=== PATIENT | male | born 1985 | race African-American/Black ===

== ENCOUNTER 2020-11-29 03:56 | Inpatient (IN) | payer BC ==
[2020-11-29] VITALS (7 sets, daily range): BP systolic 130–149; BP diastolic 72–111; PULSE 94–114; TEMP 98–98.9
[~2020-11-29] VITALS: Ht 182.9 cm; Wt 95.5 kg
[2020-11-29 05:05] LABS: BASO % 0.5 % (0.0-2.0); EOS % 0.3 % (0-4.0); GRAN # 4.7 (1.4-6.5); GRAN % 70.9 % (42.2-75.2); HEMATOCRIT 44.9 % (42.0-52.0); HEMOGLOBIN 15.6 g/dl (13.5-18.0); LYMPH % 14.7 % (20.0-51.0); MEAN CELL VOLUME 98 fl (80.0-100.0); MEAN CORPUSCULAR HEMOGLOBIN 34 pg (27.0-31.0); MEAN CORPUSCULAR HGB CONC 35 g/dl (33.0-37.0); MEAN PLATELET VOLUME 10.4 fl (7.4-10.4); MONO # 0.9 (0.1-0.6); MONO % 13.1 % (1.7-9.3); PLATELET COUNT 136 K/mm3 (130-400); RED BLOOD COUNT 4.59 M/mm3 (4.20-5.60); REDCELL DISTRIBUTION WIDTH-CV 13.1 % (11.5-14.5)
[2020-11-29 05:06] LABS: ALBUMIN 4.9 gm/dL (3.5-5.0); BILIRUBIN,TOTAL 2.4 mg/dL (0.0-1.0); CALCIUM 9.5 mg/dL (8.4-10.2); CREATININE, serum 0.94 (0.66-1.25); MAGNESIUM 1.6 mg/dL (1.6-2.3); POTASSIUM 3.6 mmol/L (3.4-5.0); TOTAL PROTEIN 8.9 gm/dL (6.4-8.2)
[2020-11-29 05:36] LABS: THYROID STIMULATING HORMONE 6.27 uIU/mL (0.465-4.680)
[2020-11-29 05:38] LABS: COLLECTION METHOD CLEAN CATCH
[2020-11-29 05:48] LABS: PH 7 (5-8); SQUAMOUS EPITHELIAL None Seen /hpf; URINE APPEARANCE Clear; URINE BACTERIA None Seen /hpf; URINE BILIRUBIN Negative (NEGATIVE); URINE BLOOD Negative (NEGATIVE); URINE COLOR Yellow; URINE GLUCOSE Negative (NEGATIVE); URINE KETONE Trace (NEGATIVE); URINE LEUKOCYTE ESTERASE Negative (NEGATIVE); URINE NITRATE Negative (NEGATIVE); URINE PROTEIN(semi-quant) 1+ (NEGATIVE); URINE RBC 0-2 /hpf; URINE UROBILINOGEN >=4.0 mg/dL (NEGATIVE)
[2020-11-29 17:53] LABS: TRICYCLIC ANTIDEPRESS URINE NEGATIVE
[2020-11-30] VITALS (13 sets, daily range): BP systolic 122–151; BP diastolic 83–100; PULSE 83–130; TEMP 97.5–98.9
[2020-11-30 07:11] LABS: HEMATOCRIT 40.9 % (42.0-52.0); HEMOGLOBIN 13.9 g/dl (13.5-18.0); MEAN CELL VOLUME 100 fl (80.0-100.0); MEAN CORPUSCULAR HEMOGLOBIN 34 pg (27.0-31.0); MEAN CORPUSCULAR HGB CONC 34 g/dl (33.0-37.0); MEAN PLATELET VOLUME 11.2 fl (7.4-10.4); PLATELET COUNT 124 K/mm3 (130-400); RED BLOOD COUNT 4.09 M/mm3 (4.20-5.60); REDCELL DISTRIBUTION WIDTH-CV 13.5 % (11.5-14.5)
[2020-11-30 07:27] LABS: ALBUMIN 4.3 gm/dL (3.5-5.0); BILIRUBIN,TOTAL 1.8 mg/dL (0.0-1.0); CALCIUM 8.8 mg/dL (8.4-10.2); CREATININE, serum 1.08 (0.66-1.25); MAGNESIUM 2.1 mg/dL (1.6-2.3); POTASSIUM 3.8 mmol/L (3.4-5.0); TOTAL PROTEIN 7.8 gm/dL (6.4-8.2)
[2020-12-01 01:28] VITALS: BP 162/114; PULSE 91; TEMP 98.8
[2020-12-01 03:34] VITALS: BP 142/105; PULSE 125; TEMP 98.9
[2020-12-01 05:48] VITALS: BP 134/90; PULSE 95; TEMP 98.7
[2020-12-01 07:20] LABS: BASO # 0.1 (0.0-0.2); BASO % 0.9 % (0.0-2.0); EOS # 0.1 (0.0-0.7); EOS % 2.1 % (0-4.0); GRAN # 3.7 (1.4-6.5); GRAN % 63.4 % (42.2-75.2); HEMATOCRIT 37.8 % (42.0-52.0); HEMOGLOBIN 12.5 g/dl (13.5-18.0); LYMPH % 17.9 % (20.0-51.0); MEAN CELL VOLUME 102 fl (80.0-100.0); MEAN CORPUSCULAR HEMOGLOBIN 34 pg (27.0-31.0); MEAN CORPUSCULAR HGB CONC 33 g/dl (33.0-37.0); MEAN PLATELET VOLUME 10.6 fl (7.4-10.4); MONO # 0.9 (0.1-0.6); PLATELET COUNT 143 K/mm3 (130-400); RED BLOOD COUNT 3.69 M/mm3 (4.20-5.60); REDCELL DISTRIBUTION WIDTH-CV 13.5 % (11.5-14.5)
[2020-12-01 07:32] LABS: ALBUMIN 3.8 gm/dL (3.5-5.0); BILIRUBIN,TOTAL 1.1 mg/dL (0.0-1.0); CALCIUM 8.6 mg/dL (8.4-10.2); CREATININE, serum 0.85 (0.66-1.25); POTASSIUM 3.7 mmol/L (3.4-5.0); TOTAL PROTEIN 6.9 gm/dL (6.4-8.2)
[2020-12-01 07:38] VITALS: BP 129/92; PULSE 107; TEMP 98.2
[2020-12-01 10:00] VITALS: BP 122/87; PULSE 95; TEMP 98.4
[2020-12-01] MEDS ORDERED: DUO-KAPS1 CAP PO (10:14)
[2020-12-01] MEDS ORDERED: FOLIC ACID 11 MG/TA1 PO (10:15)
[2020-12-01] MEDS ORDERED: THIAMINE 1100 MG/TAB PO (10:15)
== END 2020-12-01 12:20 | disposition home or self-care (01) | DRG 897 ==
LOC: COL.ER 03:56 → SURG 05:55
PROVIDERS: Emergency Medicine; Physician Assistant; ADMIT Student in an Organized Health Care Education/Training Program
DX: F10.139 Alcohol abuse with withdrawal, unspecified (principal); E87.2 Acidosis; Y90.0 Blood alcohol level of less than 20 mg/100 ml; F17.200 Nicotine dependence, unspecified, uncomplicated; I10 Essential (primary) hypertension; D69.6 Thrombocytopenia, unspecified; R10.9 Unspecified abdominal pain; Z20.828 Contact with and (suspected) exposure to other viral communicable diseases
CPT/HCPCS: 99222-AI; 99232-AI; 99239; J0360; J1630; J1650; J1885; J2060; J3475; J3480; J7030

== ENCOUNTER 2021-03-03 10:13 | Inpatient (IN) | payer BC ==
[2021-03-03] VITALS (269 sets, daily range): BP systolic 93–156; BP diastolic 55–115; PULSE 121–153; TEMP 97.1–101; O2SAT 69–100
[~2021-03-03] VITALS: Ht 182.9 cm; Wt 96.7 kg
[~2021-03-03 10:13] MED LIST: DUO-KAPS1 CAP PO; FOLIC ACID 11 MG/TA1 PO; THIAMINE 1100 MG/TAB PO
[2021-03-03 11:27] LABS: BASO % 0.3 % (0.0-2.0); EOS % 0.3 % (0-4.0); GRAN # 4.8 (1.4-6.5); GRAN % 78.7 % (42.2-75.2); HEMATOCRIT 39.1 % (42.0-52.0); HEMOGLOBIN 14.2 g/dl (13.5-18.0); LYMPH # 0.8 (1.2-3.4); LYMPH % 12.4 % (20.0-51.0); MEAN CELL VOLUME 86 fl (80.0-100.0); MEAN CORPUSCULAR HEMOGLOBIN 31 pg (27.0-31.0); MEAN CORPUSCULAR HGB CONC 36 g/dl (33.0-37.0); MEAN PLATELET VOLUME 8.5 fl (7.4-10.4); MONO # 0.5 (0.1-0.6); MONO % 8.1 % (1.7-9.3); PLATELET COUNT 176 K/mm3 (130-400); RED BLOOD COUNT 4.54 M/mm3 (4.20-5.60); REDCELL DISTRIBUTION WIDTH-CV 11.7 % (11.5-14.5)
[2021-03-03 11:33] LABS: COLLECTION METHOD CLEAN CATCH
[2021-03-03 11:39] LABS: PH 7 (5-8); SQUAMOUS EPITHELIAL None Seen /hpf; URINE APPEARANCE Clear; URINE BACTERIA None Seen /hpf; URINE BILIRUBIN Negative (NEGATIVE); URINE BLOOD Negative (NEGATIVE); URINE COLOR Straw; URINE GLUCOSE Negative (NEGATIVE); URINE KETONE Negative (NEGATIVE); URINE LEUKOCYTE ESTERASE Negative (NEGATIVE); URINE NITRATE Negative (NEGATIVE); URINE PROTEIN(semi-quant) Negative (NEGATIVE); URINE RBC 0-2 /hpf; URINE UROBILINOGEN Negative (NEGATIVE)
[2021-03-03 11:47] LABS: ALBUMIN 3.6 gm/dL (3.5-5.0); BILIRUBIN,TOTAL 3.3 mg/dL (0.0-1.0); CALCIUM 8.1 mg/dL (8.4-10.2); CREATININE, serum 0.65 (0.66-1.25); POTASSIUM 3.2 mmol/L (3.4-5.0); TOTAL PROTEIN 7.5 gm/dL (6.4-8.2)
[2021-03-03 15:20] LABS: INR 1.2 (0.8-3.0); PROTHROMBIN TIME 13.1 SECONDS (9.7-12.8)
[2021-03-03 15:23] LABS: PARTIAL THROMBOPLASTIN TIME 30.6 SECONDS (26.0-37.0)
[2021-03-03 15:26] LABS: CALCIUM 8.3 mg/dL (8.4-10.2); CREATININE, serum 0.71 (0.66-1.25); POTASSIUM 3.5 mmol/L (3.4-5.0)
[2021-03-03 20:48] LABS: TRICYCLIC ANTIDEPRESS URINE NEGATIVE
--- NOTE | 2021-03-03 21:39 | NUR ---
CONFUSED, ANXIOUS, PRECEDEX IV HAS BEGUN, ATIVAN Q 2HR, HEART RATE REMAINS ELEVATED WITH HYPERTENSION
[2021-03-03 21:56] LABS: CALCIUM 8.1 mg/dL (8.4-10.2); CREATININE, serum 0.77 (0.66-1.25); POTASSIUM 3.9 mmol/L (3.4-5.0)
--- NOTE | 2021-03-03 22:30 | NUR ---
PATIENT BECOMES MORE AGITATED AND WANTS TO LEAVE ROOM ATTEMPS ROSANNE TO KEEP PATIENT IN ROOM, 2240 ENTIRE STAFF AND HOSPITALIST PRESENT, PLACING PATIENT BACK IN BED FULL RESTRAINTS UTILISED MEDS ADMINISTERED 2 NEW IV STARTS 20 G RIGHT AND LEFT AC. 2310 ARRIVAL OF ANESTHIA, 2312 MEDS ADMINSTERED PER ANESTHIA IN RAC, 2313 PATIENT INTUBATED 8.0 TUBE, 23 AT LIPS, CO2 CHANGE FROM PURPLE TO YELLOW, 2318 OG PLACED 68 AT LIPS, URINE GUALLPA PLACED WITH 350 CC RESIDUAL SECURED TO LEFT LEG, 2327 PROPFOL/ FENTANYL IV DRIPS BEGIN PER ORDER, 2330 PRTABLE CHEST EXRAY OBTAINED
--- NOTE | 2021-03-03 22:40 | NUR ---
2234 Patient physically aggressive with staff. RAFFAELE Eller shouting for help. Patient hallucinating. Phyiscally pushing staff. Patient assisted back to bed by BELLO Cantu, RAFFAELE Eller, and Michelle KNIGHT. Verbal orders for 2mg IM ativan now. EUGENE Martinez administered to patient. Patient placed in 4 point restraints and IVs started by staff. Patient given another 2mg IV Ativan per verbal order from Michelle KNIGHT and Dr. Stevenson. 2254 Patient continued to pull against restraints after administration of ativan. Continues to be tachy 150-190. Dr. Stevenson suggested to Michelle KNIGHT leaving patient in 4 point restraints and giving IV ativan 4mg Q1H throughout night. Patient safety a concern. Staff voiced concern to Michelle KNIGHT and suggested intubation for safety reasons. Michelle KNIGHT agrees with suggestion and spoke with Dr. Stevenson. Orders to proceed with intubation given.
[2021-03-04] VITALS (860 sets, daily range): BP systolic 87–117; BP diastolic 58–79; PULSE 72–130; TEMP 99.6–102.9; O2SAT 80–100
--- NOTE | 2021-03-04 | NUR ---
2313- PT INTUBATED. 8.0 TUBE. COLOR CHANGE ON C02 DETECTOR, EQUAL BILATERAL BREATH SOUNDS. ETT 23 @ LIPS. SECURED WITH TUBE HOLER. 2330- PT PLACED ON MECHANICAL VENTILATOR WITH SETTINGS OF 450, 16, + 5 40%/
[2021-03-04 01:31] LABS: ARTERIAL BLD GAS O2 SATURATION 99.2 % (92-100); ARTERIAL BLD GAS TCO2 CT 24.3; ARTERIAL BLOOD GAS BASE EXCESS -1.5 (-2-2); ARTERIAL BLOOD GAS HCO3 23.1 meq/L (22-26); ARTERIAL BLOOD GAS PO2 160.2 mmHg (80-100); ARTERIAL BLOOD GAS pH 7.39 (7.35-7.45)
--- NOTE | 2021-03-04 02:50 | NUR ---
PATIENT SEDATED AND INTUBATED, REMOVAL OF 4 POINT RESTRAINTS 2 SOFT RESTRAINTS REPLACED ON WRIST FOR THE PRERCAUTION OF PULLING AT IVS, ECG INTUBATION EQUIPMENT
[2021-03-04 04:06] LABS: BASO % 0.3 % (0.0-2.0); GRAN # 4.1 (1.4-6.5); GRAN % 71.6 % (42.2-75.2); HEMATOCRIT 41.7 % (42.0-52.0); HEMOGLOBIN 14.5 g/dl (13.5-18.0); LYMPH % 17.3 % (20.0-51.0); MEAN CELL VOLUME 90 fl (80.0-100.0); MEAN CORPUSCULAR HEMOGLOBIN 31 pg (27.0-31.0); MEAN CORPUSCULAR HGB CONC 35 g/dl (33.0-37.0); MEAN PLATELET VOLUME 9.4 fl (7.4-10.4); MONO # 0.6 (0.1-0.6); MONO % 10.5 % (1.7-9.3); PLATELET COUNT 134 K/mm3 (130-400); RED BLOOD COUNT 4.65 M/mm3 (4.20-5.60); REDCELL DISTRIBUTION WIDTH-CV 12.2 % (11.5-14.5)
[2021-03-04 04:15] LABS: ALBUMIN 3.4 gm/dL (3.5-5.0); BILIRUBIN,TOTAL 1.6 mg/dL (0.0-1.0); CALCIUM 7.6 mg/dL (8.4-10.2); CREATININE, serum 0.79 (0.66-1.25); MAGNESIUM 2.1 mg/dL (1.6-2.3); POTASSIUM 3.8 mmol/L (3.4-5.0); TOTAL PROTEIN 7.3 gm/dL (6.4-8.2)
[2021-03-04 05:54] LABS: ARTERIAL BLD GAS O2 SATURATION 99.1 % (92-100); ARTERIAL BLD GAS TCO2 CT 23.8; ARTERIAL BLOOD GAS BASE EXCESS -3.2 (-2-2); ARTERIAL BLOOD GAS HCO3 22.5 meq/L (22-26); ARTERIAL BLOOD GAS PCO2 42.6 mmHg (35-45); ARTERIAL BLOOD GAS pH 7.34 (7.35-7.45)
[2021-03-04 05:55] LABS: ARTERIAL BLOOD GAS PO2 148.5 mmHg (80-100)
--- NOTE | 2021-03-04 06:06 | NUR ---
PT IS NOT ON WEAN TRIAL HAS NOT BEEN INTUBATED FOR MORE THAN 24 HOURS. ON DOCUMENTED SETTINGS AAYUSH WELL WITH NO DISTRESS NOTED
--- NOTE | 2021-03-04 06:23 | NUR ---
NO VACATION TONIGHT CAUSE JUS GOT PATIENT SEDATED A COUPLE OF HOURS AGO
--- NOTE | 2021-03-04 10:00 | NUR ---
Updated mother of patient status via telephone. All questions and concerns addressed at this time.
--- NOTE | 2021-03-04 10:37 | NUR ---
Angle Dozer Operator contacted patient's family to complete intake as patient is currently intubated and on isolation precautions due to COVID 19 infection. SW contacted patient's fiance, Neela (ph#[phone]) who advised she and patient live with their three year old son, Alexis here in [place]. Neela does not believe patient has a primary care physician at this time. Patient does not use any DME and is normally independent with ADLS. Neela does not believe patient has DPOA-HC and SW did not locate copy in EMR. Neela advised patient is not and has no children over 18. Neela reports patient's parents Cleveland (ph#[phone]) and Owen (cell#[phone], home#[phone]) live in [place]. Neela understands that SW has to contact patient's parents as they are legal next of kin, however this also upsets her as she is concerned patient's mother will make patient feel guilty about all that's happened. Neela advised she thought patient had quit drinking back in December and had even told patient when he proposed that she would not him unless he quit drinking. Neela believes patient went to a treatment program back in late 2017. JONAH then contacted patient's father, Cleveland who was aware patient was in the hospital. JONAH notified Cleveland that patient is intubated and that he and Owen would be patient's decision makers as legal next of kin. Cleveland verbalized understanding and asked SW to contact patient's mother, Owen as well. JONAH contacted Owen to notify her that patient was intubated and admitted to the ICU. Owen repeatedly asked SW if patient was going to and was very worried about patient. JONAH advised Owen that patient's RN would call as soon as she can to give a medical update. JONAH collaborated with Miriam CASTORENA about patient's legal next of kin and advised that any decisions would need to be made by patient's parents. JONAH provided RN with parent's contact information and also updated patient's physical chart to include contact information for patient's parents, which identify them as legal next of kin. Miriam CASTORENA contacted patient's mother, Owen to give medical update. Discharge Plan: Unknown at this time, patient remains intubated.
--- NOTE | 2021-03-04 10:44 | NUR ---
Initial visit; attempt; Patient sleeping, Foster Winder left card offering God's blessings and information regarding the availability of spiritual care at our hospital.
--- NOTE | 2021-03-04 11:00 | NUR ---
Municipal Engineer received a phone call from patient's mother, Owen who inquired about how they could legally place patient in alcohol treatment. SW advised Owen that patient would have to be agreeable to go to treatment unless there was a court order. Owen verbalized understanding and will try to talk with patient about going to inpatient treatment. Owen reports that they would be able to support patient financially while he is in inpatient treatment. Owen advised this is not the first time patient has been hospitalized for detox. JONAH will continue to follow.
--- NOTE | 2021-03-04 12:00 | NUR ---
Patient tolerating ventilator well; Able to open eyes and speech and follow basic commands appropriately. Will continue to monitor.
--- NOTE | 2021-03-04 14:44 | NUR ---
NOTIFIED DR ROLDAN THAT PT SELF EXTUBATED. PHYSICIAN REQUESTS PT TO BE REINTUBATED BY ANESTHESIA. ANESTHESIA PAGED. RAFFAELE LAGUNA NOTIFIED OF POC.
--- NOTE | 2021-03-04 14:45 | NUR ---
Vent alarm sounding; observed patient pulling at ET tube. Entered patient's room and patient had self-extubated. Patient was alert and looking at this nurse. O2 mainting 100% on RA. Notified Dr. Alcazar and requested to re-intubate the patient. RT and anethesia notified.
--- NOTE | 2021-03-04 15:15 | NUR ---
Anethesia intubated at 1500 and was finished at 1506. Tolerated well.
--- NOTE | 2021-03-04 15:15 | NUR ---
Axillary temp 102.9. Dr Alcazar notified; administered PRN tylenol. Will continue to monitor.
[2021-03-04 16:00] LABS: CALCIUM 7.2 mg/dL (8.4-10.2); CREATININE, serum 0.92 (0.66-1.25); POTASSIUM 3.7 mmol/L (3.4-5.0)
--- NOTE | 2021-03-04 19:30 | NUR ---
Received report from RAFFAELE Pineda.
--- NOTE | 2021-03-04 20:00 | NUR ---
Patient resting quietly in bed. Axillary temperature upon assessment is 102.9; patient tachycardic between 110-120s, other vitals within normal limits. He is easily aroused by speech and follows verbal commands when prompted. Skin feels cool to touch and is slightly clammy. Patient tolerating ventilator well. [facility] physician, Dr. Garcia, at 2100, notified of patient's temperature despite tylenol administration at 1700. Received orders to obtain a lactic as well as urine and blood cultures. To consult infectious disease. Will apply ice to axillary and groin areas per Dr. Garcia's orders.
[2021-03-04 22:33] LABS: COLLECTION METHOD CLEAN CATCH
[2021-03-04 22:45] LABS: MUCOUS Present /lpf; PH 5 (5-8); SQUAMOUS EPITHELIAL None Seen /hpf; URINE APPEARANCE Hazy; URINE BACTERIA None Seen /hpf; URINE BILIRUBIN Negative (NEGATIVE); URINE BLOOD 2+ (NEGATIVE); URINE COLOR Amber; URINE GLUCOSE Negative (NEGATIVE); URINE KETONE Negative (NEGATIVE); URINE LEUKOCYTE ESTERASE Negative (NEGATIVE); URINE NITRATE Negative (NEGATIVE); URINE PROTEIN(semi-quant) 1+ (NEGATIVE); URINE UROBILINOGEN >=4.0 mg/dL (NEGATIVE)
[2021-03-05] VITALS (1173 sets, daily range): BP systolic 87–120; BP diastolic 60–89; PULSE 76–101; TEMP 98.3–102.8; O2SAT 96–100
[2021-03-05 05:46] LABS: BASO % 0.4 % (0.0-2.0); EOS % 0.6 % (0-4.0); GRAN % 54.8 % (42.2-75.2); LYMPH # 1.9 (1.2-3.4); MEAN CELL VOLUME 94 fl (80.0-100.0); MEAN CORPUSCULAR HGB CONC 33 g/dl (33.0-37.0); MEAN PLATELET VOLUME 9.7 fl (7.4-10.4); MONO # 0.5 (0.1-0.6); MONO % 8.8 % (1.7-9.3); PLATELET COUNT 114 K/mm3 (130-400); RED BLOOD COUNT 3.57 M/mm3 (4.20-5.60); REDCELL DISTRIBUTION WIDTH-CV 12.5 % (11.5-14.5)
[2021-03-05 05:47] LABS: HEMATOCRIT 33.5 % (42.0-52.0); HEMOGLOBIN 11.2 g/dl (13.5-18.0); MEAN CORPUSCULAR HEMOGLOBIN 31 pg (27.0-31.0)
[2021-03-05 05:53] LABS: ALBUMIN 2.7 gm/dL (3.5-5.0); BILIRUBIN,TOTAL 0.8 mg/dL (0.0-1.0); CALCIUM 6.9 mg/dL (8.4-10.2); CREATININE, serum 0.81 (0.66-1.25); MAGNESIUM 2.1 mg/dL (1.6-2.3); PHOSPHOROUS 4.3 mg/dL (2.5-4.5); POTASSIUM 3.6 mmol/L (3.4-5.0); TOTAL PROTEIN 6.2 gm/dL (6.4-8.2)
--- NOTE | 2021-03-05 05:54 | NUR ---
Patient's sedation set to standby for AM lab draws. RN had difficulty obtaining labs from PICC line. Sedation on standby for approx. 15-20 minutes. Patient alert, opening eyes spontaneously, and following verbal commands. Sedation resumed at previous rates. Tolerated well.
[2021-03-05 06:08] LABS: ARTERIAL BLD GAS O2 SATURATION 97.7 % (92-100); ARTERIAL BLD GAS TCO2 CT 20.7; ARTERIAL BLOOD GAS BASE EXCESS -6.3 (-2-2); ARTERIAL BLOOD GAS HCO3 19.4 meq/L (22-26); ARTERIAL BLOOD GAS PCO2 39.5 mmHg (35-45); ARTERIAL BLOOD GAS PO2 106.4 mmHg (80-100); ARTERIAL BLOOD GAS pH 7.31 (7.35-7.45)
--- NOTE | 2021-03-05 15:00 | NUR ---
Patient restless in bed; kicked off blankets and attempting to sit up. Sat with paient to attempt to calm and re-orient. Sedation increased. Will continue to monitor.
--- NOTE | 2021-03-05 16:00 | NUR ---
Assisted with repositioning and oral care. Patient opening eyes and following basic commands. Able to communicate non-verbally that he wanted his cellphone. Patient becoming restless and observed hands and feet having tremeors. PRN ativan administered. Will continue to monitor.
[2021-03-05 17:31] LABS: ARTERIAL BLD GAS O2 SATURATION 98.1 % (92-100); ARTERIAL BLD GAS TCO2 CT 21.9; ARTERIAL BLOOD GAS BASE EXCESS -1.9 (-2-2); ARTERIAL BLOOD GAS HCO3 20.9 meq/L (22-26); ARTERIAL BLOOD GAS PCO2 30.2 mmHg (35-45); ARTERIAL BLOOD GAS PO2 101.3 mmHg (80-100); ARTERIAL BLOOD GAS pH 7.46 (7.35-7.45)
--- NOTE | 2021-03-05 18:18 | NUR ---
Hospitalist notified that this nurse was [facility] to get [facility]
--- NOTE | 2021-03-05 18:27 | NUR ---
Sedation vacation not performed. Patient opens eyes spontaneously. Able to follow commands and communicate with hand gestures appropriately. Will continue to monitor.
[2021-03-06] VITALS (962 sets, daily range): BP systolic 89–121; BP diastolic 55–77; PULSE 73–111; TEMP 99.4–102.2; O2SAT 91–100
[2021-03-06 05:26] LABS: BASO % 0.2 % (0.0-2.0); EOS # 0.1 (0.0-0.7); EOS % 2.1 % (0-4.0); GRAN # 3.6 (1.4-6.5); GRAN % 74.6 % (42.2-75.2); HEMOGLOBIN 10.2 g/dl (13.5-18.0); LYMPH # 0.7 (1.2-3.4); LYMPH % 14.8 % (20.0-51.0); MEAN CELL VOLUME 95 fl (80.0-100.0); MEAN CORPUSCULAR HEMOGLOBIN 33 pg (27.0-31.0); MEAN CORPUSCULAR HGB CONC 35 g/dl (33.0-37.0); MEAN PLATELET VOLUME 10.2 fl (7.4-10.4); MONO # 0.4 (0.1-0.6); MONO % 7.9 % (1.7-9.3); PLATELET COUNT 110 K/mm3 (130-400); RED BLOOD COUNT 3.11 M/mm3 (4.20-5.60); REDCELL DISTRIBUTION WIDTH-CV 12.9 % (11.5-14.5)
[2021-03-06 05:36] LABS: ALBUMIN 2.5 gm/dL (3.5-5.0); BILIRUBIN,TOTAL 0.4 mg/dL (0.0-1.0); CALCIUM 6.8 mg/dL (8.4-10.2); CREATININE, serum 0.8 (0.66-1.25); MAGNESIUM 1.9 mg/dL (1.6-2.3); PHOSPHOROUS 2.6 mg/dL (2.5-4.5); POTASSIUM 3.6 mmol/L (3.4-5.0); TOTAL PROTEIN 5.7 gm/dL (6.4-8.2)
[2021-03-06 05:46] LABS: HEMATOCRIT 29.6 % (42.0-52.0)
--- NOTE | 2021-03-06 08:15 | NUR ---
Patient restless in bed with tremors in arm and legs. Coughing against ventilator. Temp elevated with elevated heart rate. PRN ativan administered. Will continue to monitor.
[2021-03-06 08:21] LABS: ARTERIAL BLD GAS O2 SATURATION 98.4 % (92-100); ARTERIAL BLOOD GAS BASE EXCESS -5.2 (-2-2); ARTERIAL BLOOD GAS HCO3 20.8 meq/L (22-26); ARTERIAL BLOOD GAS PCO2 42.3 mmHg (35-45); ARTERIAL BLOOD GAS PO2 116.9 mmHg (80-100); ARTERIAL BLOOD GAS pH 7.31 (7.35-7.45)
[2021-03-06 08:22] LABS: ARTERIAL BLD GAS TCO2 CT 22.1
[2021-03-06 14:08] LABS: ARTERIAL BLD GAS O2 SATURATION 98.4 % (92-100); ARTERIAL BLOOD GAS BASE EXCESS -2.8 (-2-2); ARTERIAL BLOOD GAS HCO3 19.2 meq/L (22-26); ARTERIAL BLOOD GAS PCO2 25.8 mmHg (35-45); ARTERIAL BLOOD GAS PO2 118.8 mmHg (80-100); ARTERIAL BLOOD GAS pH 7.49 (7.35-7.45)
--- NOTE | 2021-03-06 17:12 | NUR ---
Tolerating ventilator well; VS stable. No concerns at this time.
[2021-03-07] VITALS (724 sets, daily range): BP systolic 98–121; BP diastolic 62–84; PULSE 69–105; TEMP 97.5–103.1; O2SAT 95–100
[2021-03-07 05:57] LABS: ARTERIAL BLD GAS O2 SATURATION 94.5 % (92-100); ARTERIAL BLD GAS TCO2 CT 19.3; ARTERIAL BLOOD GAS BASE EXCESS -6.5 (-2-2); ARTERIAL BLOOD GAS HCO3 18.3 meq/L (22-26); ARTERIAL BLOOD GAS PCO2 33.9 mmHg (35-45); ARTERIAL BLOOD GAS PO2 72.2 mmHg (80-100); ARTERIAL BLOOD GAS pH 7.35 (7.35-7.45)
[2021-03-07 06:21] LABS: BASO % 0.3 % (0.0-2.0); EOS # 0.2 (0.0-0.7); EOS % 4.8 % (0-4.0); GRAN # 1.9 (1.4-6.5); GRAN % 57.6 % (42.2-75.2); HEMOGLOBIN 10.3 g/dl (13.5-18.0); LYMPH # 0.9 (1.2-3.4); LYMPH % 26.5 % (20.0-51.0); MEAN CELL VOLUME 95 fl (80.0-100.0); MEAN CORPUSCULAR HEMOGLOBIN 31 pg (27.0-31.0); MEAN CORPUSCULAR HGB CONC 33 g/dl (33.0-37.0); MEAN PLATELET VOLUME 10.4 fl (7.4-10.4); MONO # 0.4 (0.1-0.6); MONO % 10.8 % (1.7-9.3); PLATELET COUNT 123 K/mm3 (130-400); RED BLOOD COUNT 3.31 M/mm3 (4.20-5.60)
[2021-03-07 06:32] LABS: HEMATOCRIT 31.3 % (42.0-52.0)
[2021-03-07 06:33] LABS: ALBUMIN 2.7 gm/dL (3.5-5.0); BILIRUBIN,TOTAL 0.8 mg/dL (0.0-1.0); CALCIUM 7.3 mg/dL (8.4-10.2); CREATININE, serum 0.77 (0.66-1.25); MAGNESIUM 2.1 mg/dL (1.6-2.3); PHOSPHOROUS 3.5 mg/dL (2.5-4.5); POTASSIUM 3.9 mmol/L (3.4-5.0); TOTAL PROTEIN 6.2 gm/dL (6.4-8.2)
[2021-03-07 06:40] LABS: PRE ALBUMIN 11.9 mg/dL (17.6-36.0)
--- NOTE | 2021-03-07 08:00 | NUR ---
NO CHANGES MADE TO SEDATION. PT ABLE TO FOLLOW COMMANDS APPROPRIATELY AND OPENS EYES TO VOICE WITH LITTL ETO NO AGITATION/ANXIETY.
--- NOTE | 2021-03-07 08:13 | NUR ---
REPORT GIVEN TO TRE AND CARE RELINQUISHED AT THIS TIME.
[2021-03-07 09:01] LABS: COLLECTION METHOD CLEAN CATCH
--- NOTE | 2021-03-07 09:14 | NUR ---
Radiology dept called, soonest pt would be able to recieve CT scan is at 1430.
[2021-03-07 09:19] LABS: MUCOUS Present /lpf; PH 5 (5-8); SQUAMOUS EPITHELIAL None Seen /hpf; URINE APPEARANCE Turbid; URINE BACTERIA None Seen /hpf; URINE BILIRUBIN Negative (NEGATIVE); URINE BLOOD 3+ (NEGATIVE); URINE COLOR Amber; URINE GLUCOSE Negative (NEGATIVE); URINE KETONE Negative (NEGATIVE); URINE LEUKOCYTE ESTERASE Negative (NEGATIVE); URINE NITRATE Negative (NEGATIVE); URINE PROTEIN(semi-quant) 1+ (NEGATIVE); URINE RBC >50 /hpf; URINE UROBILINOGEN >=4.0 mg/dL (NEGATIVE)
--- NOTE | 2021-03-07 09:30 | NUR ---
Sedation/Weaning trial ended - sedation resumed at previous dose/rate per MD Ottoniel. Pt was able to stay calm and follow commands. Tremors observed. MD Ottoniel notified of fevers, orders recieved and carried out
--- NOTE | 2021-03-07 13:50 | NUR ---
Lobby Concierge attended clinical rounds with the team. Patient is still currently intubated, and may be extubated tomorrow morning. SW was contacted by patient's mother, Owen who again inquired about inpatient treatment for patient and would prefer if patient is agreeable to treatment, he complete treatment in [place]. JONAH advised Owen that SW will meet with patient once he is extubated to discuss alcohol services and resources.
--- NOTE | 2021-03-07 20:00 | NUR ---
Assessment complete. Pt is on the ventilator. Repositioned in bed. Call light within reach.
[2021-03-08] VITALS (949 sets, daily range): BP systolic 98–151; BP diastolic 74–86; PULSE 60–123; TEMP 96.8–103; O2SAT 95–100
[2021-03-08 05:43] LABS: ARTERIAL BLD GAS O2 SATURATION 98.7 % (92-100); ARTERIAL BLD GAS TCO2 CT 25.8; ARTERIAL BLOOD GAS BASE EXCESS 1.1 (-2-2); ARTERIAL BLOOD GAS HCO3 24.7 meq/L (22-26); ARTERIAL BLOOD GAS PCO2 35.6 mmHg (35-45); ARTERIAL BLOOD GAS PO2 122.8 mmHg (80-100); ARTERIAL BLOOD GAS pH 7.46 (7.35-7.45)
[2021-03-08 06:18] LABS: HEMOGLOBIN 10.4 g/dl (13.5-18.0); MEAN CELL VOLUME 96 fl (80.0-100.0); MEAN CORPUSCULAR HEMOGLOBIN 31 pg (27.0-31.0); MEAN CORPUSCULAR HGB CONC 33 g/dl (33.0-37.0); MEAN PLATELET VOLUME 10.4 fl (7.4-10.4); PLATELET COUNT 158 K/mm3 (130-400); RED BLOOD COUNT 3.32 M/mm3 (4.20-5.60); REDCELL DISTRIBUTION WIDTH-CV 13.1 % (11.5-14.5)
[2021-03-08 06:28] LABS: CALCIUM 7.6 mg/dL (8.4-10.2); CREATININE, serum 0.58 (0.66-1.25); MAGNESIUM 2.2 mg/dL (1.6-2.3); PHOSPHOROUS 3.8 mg/dL (2.5-4.5); POTASSIUM 3.6 mmol/L (3.4-5.0)
[2021-03-08 07:00] LABS: HEMATOCRIT 31.8 % (42.0-52.0)
--- NOTE | 2021-03-08 07:00 | NUR ---
Bedside shift report given to RAFFAELE Rodriguez.
[2021-03-08 07:23] LABS: BAND 9 % (0-10); EOSINOPHIL 3 % (0-4); LYMPHOCYTE 38 % (20.0-51.0); NEUTROPHILS 35 % (42.0-75.2); PLATELET ESTIMATE NORMAL (NORMAL)
--- NOTE | 2021-03-08 10:35 | NUR ---
0733: IV sedation discontinued per MD Ottoniel 0830: CPAP trial failed d/t apnea - RASS:-3 0915: CPAP trial initiated - pt RASS:-1 to -2 however tolerating trial well with no more periods of apnea. 1030: pt remains on CPAP trial tolerating well - RASS remains -2, having difficulty staying awake, pt able to follow 1-2 commands before drifting off to deep sleep. Pt does have occasional/intermittent all extremity shaking with eyes closed - MD Ottoniel aware.
--- NOTE | 2021-03-08 20:57 | NUR ---
TONIGHT PATIENT'S REACTION SLOW, PUPILS PINPOINT EQUAL, AFTER RANGE OF MOTION TO A LIMB PATIENT APPEARS TO SHIVER FOR ABOUT 30 SECONDS, THEN RELAXES, CAN BE REPRODUCED WITH EVERY LIMB MOVEMENT, JOINTS REMAINED RELAXED.. WILL CONTINUE TO MONITOR
[2021-03-09] VITALS (988 sets, daily range): BP systolic 107–142; BP diastolic 75–107; PULSE 50–102; TEMP 93.6–98.8; O2SAT 87–100
--- NOTE | 2021-03-09 02:08 | NUR ---
PATIENT CORE TEMPS DECREASES FROM 97 TO 93.6. B/P ELEVATES
--- NOTE | 2021-03-09 03:16 | NUR ---
pATIENT AWAKENS CONFUSED, FOLLOWS SIMPLE COMMANDS, PROVIDER INTO SEE, AFTER ASSESSMENT, SEDATIVE/ PAIN MED RESTARTED, TIMES LAPSED 15 MINUTES
[2021-03-09 04:18] LABS: ARTERIAL BLD GAS O2 SATURATION 95.9 % (92-100); ARTERIAL BLD GAS TCO2 CT 22.2; ARTERIAL BLOOD GAS HCO3 21.4 meq/L (22-26); ARTERIAL BLOOD GAS PCO2 28.8 mmHg (35-45); ARTERIAL BLOOD GAS PO2 76.8 mmHg (80-100); ARTERIAL BLOOD GAS pH 7.49 (7.35-7.45)
[2021-03-09 05:13] LABS: EOS # 0.1 (0.0-0.7); EOS % 6.3 % (0-4.0); GRAN # 1.1 (1.4-6.5); HEMOGLOBIN 10.8 g/dl (13.5-18.0); LYMPH # 0.5 (1.2-3.4); LYMPH % 24.2 % (20.0-51.0); MEAN CELL VOLUME 97 fl (80.0-100.0); MEAN CORPUSCULAR HEMOGLOBIN 31 pg (27.0-31.0); MEAN CORPUSCULAR HGB CONC 32 g/dl (33.0-37.0); MEAN PLATELET VOLUME 9.9 fl (7.4-10.4); MONO # 0.3 (0.1-0.6); PLATELET COUNT 170 K/mm3 (130-400); RED BLOOD COUNT 3.45 M/mm3 (4.20-5.60)
[2021-03-09 05:17] LABS: HEMATOCRIT 33.5 % (42.0-52.0)
--- NOTE | 2021-03-09 05:18 | NUR ---
PATIENT'S TEMPS IS INCREASING 1 DEGREE AN HOUR, CURRENTLY 96.8
[2021-03-09 05:23] LABS: CALCIUM 7.7 mg/dL (8.4-10.2); CREATININE, serum 0.58 (0.66-1.25); MAGNESIUM 2.2 mg/dL (1.6-2.3); PHOSPHOROUS 4.1 mg/dL (2.5-4.5); POTASSIUM 3.6 mmol/L (3.4-5.0)
--- NOTE | 2021-03-09 05:45 | NUR ---
BLANKET WARMER COMPLETE REMOVED TEMP 97.5
--- NOTE | 2021-03-09 07:00 | NUR ---
Propofol gtt, Fentanyl gtt and tube feeds stopped per MD Ottoniel. Pt able to open eyes to stimulation, coughing but tolerating ventilations, able to follow commands after several requests (weak in all extremities), then pt's eyes roll back before falling asleep.
--- NOTE | 2021-03-09 09:15 | NUR ---
0906 pt extubated (MD Ottoniel on unit) to 10L/min, cough weak, oral suctioning and oral care provided. Oxygen titrated down to 3L oxymask. PT drowsy, able to sluggishly follow commands. Tachycardia noted and MD Ottoniel aware. Orders recived for continuation of Ativan for CIWA and precedex gtt for aggitation.
--- NOTE | 2021-03-09 10:38 | NUR ---
Pt's mother "Owen" called and updated.
--- NOTE | 2021-03-09 11:45 | NUR ---
Steward/Stewardess Club Car attended clinical rounds with the team. Patient was extubated this morning and SW will continue to follow.
[2021-03-09 12:08] LABS: ARTERIAL BLD GAS O2 SATURATION 93.2 % (92-100); ARTERIAL BLD GAS TCO2 CT 25.3; ARTERIAL BLOOD GAS BASE EXCESS -2.2 (-2-2); ARTERIAL BLOOD GAS HCO3 23.9 meq/L (22-26); ARTERIAL BLOOD GAS PCO2 46.6 mmHg (35-45); ARTERIAL BLOOD GAS PO2 73.9 mmHg (80-100); ARTERIAL BLOOD GAS pH 7.33 (7.35-7.45)
--- NOTE | 2021-03-09 19:30 | NUR ---
RECEIVED REPORT FROM RAFFAELE TOLEDO. PATIENT RESTING IN BED WITH EYES CLOSED. STILL IN DROPLET ISOLATION. GUALLPA APPEARS PATENT WITH URINE LEFTOVER FROM PREVIOUS SHIFT IN BAG. VSS, EXCEPT BP SEEMS HIGH. WILL ASSESS. CALL LIGHT WITHIN REACH.
[2021-03-09 20:48] LABS: ARTERIAL BLD GAS TCO2 CT 28.7; ARTERIAL BLOOD GAS BASE EXCESS 2.4 (-2-2); ARTERIAL BLOOD GAS HCO3 27.4 meq/L (22-26); ARTERIAL BLOOD GAS PCO2 43.8 mmHg (35-45); ARTERIAL BLOOD GAS pH 7.41 (7.35-7.45)
[2021-03-09 21:38] LABS: HEMOGLOBIN 11.5 g/dl (13.5-18.0); MEAN CELL VOLUME 98 fl (80.0-100.0); MEAN CORPUSCULAR HEMOGLOBIN 31 pg (27.0-31.0); MEAN CORPUSCULAR HGB CONC 32 g/dl (33.0-37.0); MEAN PLATELET VOLUME 9.8 fl (7.4-10.4); PLATELET COUNT 259 K/mm3 (130-400); RED BLOOD COUNT 3.74 M/mm3 (4.20-5.60); REDCELL DISTRIBUTION WIDTH-CV 12.7 % (11.5-14.5)
[2021-03-09 21:44] LABS: HEMATOCRIT 36.5 % (42.0-52.0)
[2021-03-09 21:45] LABS: CALCIUM 8.1 mg/dL (8.4-10.2); CREATININE, serum 0.64 (0.66-1.25); MAGNESIUM 2.3 mg/dL (1.6-2.3)
--- NOTE | 2021-03-09 22:00 | NUR ---
RECEIVED A CALL SHORTLY AFTER NOTICING PATIENT'S HR WAS IN 170s-190s FROM GEETA IN TELEMETRY ABOUT HR AT 2040. IT WAS SUSTAINING IN THE 190s CONTACTED MARTHA AND RAFFAELE ANDERSON ABOUT NEXT STEPS. WAS TOLD TO CONTACT SIA BOWSER. WHILE ON PHONE WITH MAGUE, GAVE SHORT UPDATE AND ADVISED TO CALL E-CARE. E-CARE ADVISED TO GET CARDIZEM GTT, EKG, LABS AND TO KEEP AN UPDATE. PRESSED PANIC BUTTON FOR E-CARE TO SEE IN ROOM. WHEN IN PATIENT'S ROOM, ADVISED PATIENT TO TRY VASALVA MANUEVER, WHICH WAS UNSUCCESSFUL. STARTED ON CARTIZEM AND SIA BOWSER, MARTHA, LAB AND RT CAME DOWN. RT HAD JUST DRAWN ABGs AND WAS PENDING RESULTS. PATIENT REMAINED ASYMPTOMATIC. MAGUE CONTACTED DR. GEE WITH CARDIOLOGY. WAS ADVISED TO PUSH ADENOSINE AND TO STOP CARDIZEM AND START WITH ESMOLOL AND GIVE 1 LETER BOLUS OF NS. BROUGHT CRASH CART INSIDE AND RAFFAELE ANDERSON PREPARED TO PUSH ADENOSINE. PUSHED 6MG AT 2114 AND WAS UNSUCCESSFUL. PUSHED 12MG AT 2119 AND WAS SUCCESSFUL. HR IS NOW SUSTAINING IN 80s.
[2021-03-09 22:13] LABS: BAND 1 % (0-10); EOSINOPHIL 1 % (0-4); HYPOCHROMIA 3+; LYMPHOCYTE 27 % (20.0-51.0); NEUTROPHILS 50 % (42.0-75.2); PLATELET ESTIMATE NORMAL (NORMAL)
[2021-03-09 22:15] LABS: TSH w REFLEX 1.65 uIU/mL (0.465-4.680)
[2021-03-09 22:16] LABS: POTASSIUM 4.2 mmol/L (3.4-5.0)
[2021-03-10] VITALS (672 sets, daily range): BP systolic 126–154; BP diastolic 87–115; PULSE 67–106; TEMP 97.7–100.4; O2SAT 17–100
[2021-03-10 03:43] LABS: HEMOGLOBIN 10.3 g/dl (13.5-18.0); MEAN CELL VOLUME 96 fl (80.0-100.0); MEAN CORPUSCULAR HEMOGLOBIN 31 pg (27.0-31.0); MEAN CORPUSCULAR HGB CONC 32 g/dl (33.0-37.0); MEAN PLATELET VOLUME 9.4 fl (7.4-10.4); PLATELET COUNT 215 K/mm3 (130-400); RED BLOOD COUNT 3.36 M/mm3 (4.20-5.60); REDCELL DISTRIBUTION WIDTH-CV 12.7 % (11.5-14.5)
[2021-03-10 03:54] LABS: CALCIUM 7.5 mg/dL (8.4-10.2); CREATININE, serum 0.57 (0.66-1.25); MAGNESIUM 2.2 mg/dL (1.6-2.3); PHOSPHOROUS 3.6 mg/dL (2.5-4.5); POTASSIUM 3.8 mmol/L (3.4-5.0)
[2021-03-10 04:00] LABS: HEMATOCRIT 32.3 % (42.0-52.0)
[2021-03-10 04:05] LABS: TROPONIN-I 6 HR POST INITIAL 0.02 ng/mL (0.000-0.034)
[2021-03-10 04:07] LABS: BAND 1 % (0-10); BASOPHIL 1 % (0-2); LYMPHOCYTE 31 % (20.0-51.0); MYELOCYTE 1 % (0-0); NEUTROPHILS 50 % (42.0-75.2)
[2021-03-10 04:08] LABS: METAMYELOCYTE 3 % (0-0)
[2021-03-10 04:09] LABS: HYPOCHROMIA 2+; PLATELET ESTIMATE NORMAL (NORMAL)
[2021-03-10 05:21] LABS: ARTERIAL BLD GAS O2 SATURATION 98.5 % (92-100); ARTERIAL BLD GAS TCO2 CT 28.6; ARTERIAL BLOOD GAS BASE EXCESS 1.5 (-2-2); ARTERIAL BLOOD GAS HCO3 27.1 meq/L (22-26); ARTERIAL BLOOD GAS PCO2 47.2 mmHg (35-45); ARTERIAL BLOOD GAS pH 7.38 (7.35-7.45)
[2021-03-10 05:22] LABS: ARTERIAL BLOOD GAS PO2 124.1 mmHg (80-100)
[2021-03-10 08:39] LABS: IRON,SERUM 66 ug/dL (35-150)
[2021-03-10 08:48] LABS: TOTAL IRON BINDING CAPACITY 220 ug/dL (261-462)
--- NOTE | 2021-03-10 13:00 | NUR ---
Patient restless in bed; attempting to get out of bed alone. Offered water and able to swallow without difficulty. Assisted back to bed. PRN ativan administered. Will continue to monitor.
--- NOTE | 2021-03-10 16:00 | NUR ---
Patient drowsy but awake; picks at monitoring devices and has removed oxymask multiple times. Attempt to re-orient patient as needed. Able to follow basic commands. Voice is quiet and hoarse due to intubation but was able to ask nurse for water and asked this nurses name. Patient requested that nurse attempt to remove his tongue ring. Tongue ring was removed and placed in a cup in patient's room. Will continue to monitor.
[2021-03-10 16:22] LABS: ARTERIAL BLD GAS O2 SATURATION 89.6 % (92-100); ARTERIAL BLD GAS TCO2 CT 25.9; ARTERIAL BLOOD GAS BASE EXCESS 1.5 (-2-2); ARTERIAL BLOOD GAS HCO3 24.9 meq/L (22-26); ARTERIAL BLOOD GAS PCO2 35.5 mmHg (35-45); ARTERIAL BLOOD GAS PO2 52.3 mmHg (80-100); ARTERIAL BLOOD GAS pH 7.46 (7.35-7.45)
--- NOTE | 2021-03-10 19:30 | NUR ---
Received report from RAFFAELE Pineda.
--- NOTE | 2021-03-10 20:00 | NUR ---
Patient resting quietly in bed. He is alert although drowsy more often than not. Patient's speech is quiet and confused; he follows verbal commands. Patient is impulsive, and removes nasal cannula and O2 probe; patient also frequently tugs at willingham catheter. Mitts applied for protection of lines.
[2021-03-11] VITALS (1069 sets, daily range): BP systolic 138–156; BP diastolic 70–99; PULSE 70–105; TEMP 98.2–99.3; O2SAT 84–100
[2021-03-11 05:18] LABS: HEMOGLOBIN 11.2 g/dl (13.5-18.0); MEAN CELL VOLUME 94 fl (80.0-100.0); MEAN CORPUSCULAR HEMOGLOBIN 31 pg (27.0-31.0); MEAN CORPUSCULAR HGB CONC 32 g/dl (33.0-37.0); MEAN PLATELET VOLUME 9.2 fl (7.4-10.4); PLATELET COUNT 304 K/mm3 (130-400); RED BLOOD COUNT 3.67 M/mm3 (4.20-5.60); REDCELL DISTRIBUTION WIDTH-CV 12.5 % (11.5-14.5)
[2021-03-11 05:31] LABS: ALBUMIN 3.1 gm/dL (3.5-5.0); BILIRUBIN,TOTAL 0.7 mg/dL (0.0-1.0); CALCIUM 7.8 mg/dL (8.4-10.2); CREATININE, serum 0.59 (0.66-1.25); MAGNESIUM 1.9 mg/dL (1.6-2.3); PHOSPHOROUS 3.4 mg/dL (2.5-4.5); POTASSIUM 3.7 mmol/L (3.4-5.0); TOTAL PROTEIN 6.6 gm/dL (6.4-8.2)
[2021-03-11 05:38] LABS: HEMATOCRIT 34.6 % (42.0-52.0)
[2021-03-11 06:24] LABS: BAND 22 % (0-10); LYMPHOCYTE 25 % (20.0-51.0); MYELOCYTE 1 % (0-0); NEUTROPHILS 50 % (42.0-75.2); PLATELET ESTIMATE NORMAL (NORMAL)
--- NOTE | 2021-03-11 07:30 | NUR ---
Resting in bed; drowsy but awakens easily. Able to follow basic commands but then falls back asleep. Will continue to monitor.
--- NOTE | 2021-03-11 09:40 | NUR ---
Assisted patient with applesauce; able to swollow without difficulty. Updated mom via telephone. All quetions and concerns addressed at this time.
--- NOTE | 2021-03-11 11:48 | NUR ---
PT stated that he was agreeable to taking his PO blood pressure pills. Patient took the pills in his mouth then refused to swallow them. After holding them in his mouth he spit them out all over the bed.
--- NOTE | 2021-03-11 13:30 | NUR ---
Career Development Facilitator collaborated with RN, Miriam who advised she did not think that patient could tolerate a phone call from JONAH as patient was recently extubated and is still drowsy. JONAH contacted patient's mother, Owen to check in before the weekend. Owen is hopeful that patient will be open to drug/alcohol resources, specifically inpatient treatment. Owen reports patient's father, Flip is in [place] and is getting patient's car cleaned out.
--- NOTE | 2021-03-11 13:30 | NUR ---
Assisted PT to work with patient. Assisted out of bed with a walker. Able to take a few steps away from the bed. Tolerated well.
--- NOTE | 2021-03-11 15:15 | NUR ---
Patient has refused X 2 to take his blood pressure medication. Medication purpose was explained to patient and an education print out was provided. Explained that we are trying to wean off of the IV Esmolol but he needs to consistently take oral medications first. Still refusing. Hostpitalist notifed; will keep on IV Esmolol at this time.
--- NOTE | 2021-03-11 16:16 | NUR ---
[facility] reviewed patient's PT notes which advise that placement will likely be needed. SW consulted Mary, [facility] Director who advised she will review referral and follow patient.
--- NOTE | 2021-03-11 19:14 | NUR ---
Patient has had 5450 ml of output out of the willingham. Patient had edema to feet/ankles and hands and wrists. Swelling appears to have decreased. Discussed with Deanna and will obtain a BMP to check electrolytes.
--- NOTE | 2021-03-11 19:30 | NUR ---
Received report from RAFFAELE Pineda. All medications verified and all questions answered. Patient resting in bed on RA. VSS. Patient on droplet/contact precautions d/t positive covid test result. No concerns or complaints noted at this time. Will resume care of patient at this time.
[2021-03-11 22:21] LABS: CALCIUM 8.1 mg/dL (8.4-10.2); CREATININE, serum 0.63 (0.66-1.25); POTASSIUM 3.4 mmol/L (3.4-5.0)
[2021-03-12] VITALS (381 sets, daily range): BP systolic 66–152; BP diastolic 40–118; PULSE 66–200; TEMP 97.8–98.9; O2SAT 78–100
--- NOTE | 2021-03-12 00:43 | NUR ---
Esmolol gtt placed on standy at this time. Patient VSS stable.
--- NOTE | 2021-03-12 05:15 | NUR ---
Precedex placed on standby at 0420. Patient alert and oriented x 4. VSS. Patient appears calm and relaxed, resting in bed watching tv.
[2021-03-12 05:42] LABS: CALCIUM 8.1 mg/dL (8.4-10.2); CREATININE, serum 0.6 (0.66-1.25); MAGNESIUM 2.2 mg/dL (1.6-2.3); PHOSPHOROUS 3.7 mg/dL (2.5-4.5); POTASSIUM 3.3 mmol/L (3.4-5.0)
[2021-03-12 06:08] LABS: HEMOGLOBIN 11.2 g/dl (13.5-18.0); MEAN CELL VOLUME 94 fl (80.0-100.0); MEAN CORPUSCULAR HEMOGLOBIN 31 pg (27.0-31.0); MEAN CORPUSCULAR HGB CONC 33 g/dl (33.0-37.0); MEAN PLATELET VOLUME 9.7 fl (7.4-10.4); PLATELET COUNT 350 K/mm3 (130-400); RED BLOOD COUNT 3.66 M/mm3 (4.20-5.60); REDCELL DISTRIBUTION WIDTH-CV 12.7 % (11.5-14.5)
[2021-03-12 06:14] LABS: HEMATOCRIT 34.4 % (42.0-52.0)
[2021-03-12 06:48] LABS: BAND 10 % (0-10); EOSINOPHIL 4 % (0-4); LYMPHOCYTE 22 % (20.0-51.0); METAMYELOCYTE 2 % (0-0); MYELOCYTE 2 % (0-0); NEUTROPHILS 41 % (42.0-75.2)
[2021-03-12 06:49] LABS: PLATELET ESTIMATE NORMAL (NORMAL)
--- NOTE | 2021-03-12 06:56 | NUR ---
Nurse notified of patient heart rate of 170 and rising. Nurse went into patient room and noted that patient appeared cool and clammy. Heart rate sustained at 200. Patient stated his heart felt like it was beating really fast and he felt nauseaus. Charge, RN and Medical Director Occupational Health notified of patient situation. Charge, RN notified Dr. Verdugo. Patient temperature was 98.7 axillary, 100% O2 on RA and RR of 32, BP of 66/40 and then 73/40 when recycled. Nurse instructed patient to bear down and take big deep breaths, nurse also placed ice bags in between patients bilateral armpits. Heart rate remained sustained in the 200s. This nurse pushed 6mg of adenosine at 0618. Patient heart rate when down into the 40s and picked back up into the 90s where it sustained. Esmololol gtt restarted at 50mcg/kg/min or 31.2mls/hr per Dr. Verdugo. EKG performed
--- NOTE | 2021-03-12 07:30 | NUR ---
REPORT RECIEVED FROM JUSTIN RN, ALL QUESTIONS ANSWERED. PATIENT FOUND ALERT AND ORIENTED IN BED RESTING. DENIES PAIN OR DISCOMFORT. COUGHT NOTED. HEART SOUNDS REGULAR, LUNG SOUNDS CLEAR, BOWEL SOUNDS ACTIVE. AT THIS TIME PATIENT IS IN NSR. BP WNL. IV INFUSING INTO RIGHT UPPER ARM PICC. GUALLPA IN PLACE DRAINING CLEAR YELLOW URINE. ALL SAFETY MAINTAINED, CALL ASHER WITHIN REACH. WILL CONITNUE TO MONITOR.
--- NOTE | 2021-03-12 09:00 | NUR ---
MD AT BEDSIDE. DISCUSSED PLAN OF CARE IN REGARDS TO BLOOD PRESSURE. HOLD MAXIDE AT THIS TIME. ADMINISTER METROPROLOL AND MONITOR.
--- NOTE | 2021-03-12 13:41 | NUR ---
PER MD GIVE MAXIDE NOW FOR INCREASED BP.
--- NOTE | 2021-03-12 18:30 | NUR ---
Received report from RAFFAELE Bautista. All medications verified and all questions answered. VSS. Patient resting in bed watching TV. No concerns or complaints noted at this time. Will resume care at this time.
[2021-03-13] VITALS (168 sets, daily range): BP systolic 128–145; BP diastolic 86–98; PULSE 72–90; TEMP 97.5–98.8; O2SAT 91–98
[2021-03-13 07:04] LABS: HEMOGLOBIN 11.1 g/dl (13.5-18.0); MEAN CELL VOLUME 93 fl (80.0-100.0); MEAN CORPUSCULAR HEMOGLOBIN 31 pg (27.0-31.0); MEAN CORPUSCULAR HGB CONC 33 g/dl (33.0-37.0); MEAN PLATELET VOLUME 9.4 fl (7.4-10.4); RED BLOOD COUNT 3.64 M/mm3 (4.20-5.60)
[2021-03-13 07:07] LABS: CALCIUM 8.1 mg/dL (8.4-10.2); CREATININE, serum 0.75 (0.66-1.25); POTASSIUM 3.4 mmol/L (3.4-5.0)
[2021-03-13 07:08] LABS: PLATELET COUNT 497 K/mm3 (130-400)
[2021-03-13 08:01] LABS: BAND 1 % (0-10); EOSINOPHIL 2 % (0-4); LYMPHOCYTE 16 % (20.0-51.0); METAMYELOCYTE 2 % (0-0); MYELOCYTE 1 % (0-0); NEUTROPHILS 59 % (42.0-75.2); PLATELET ESTIMATE INCREASED (NORMAL)
[2021-03-14 03:33] VITALS: BP 134/81; PULSE 73; TEMP 98.4
--- NOTE | 2021-03-14 06:13 | NUR ---
NO NEW ISSUES NOTED OR REPORTED BY PATIENT THROUGHOUT THE NIGHT. PATIENT SHOWERED AND THEN RESTED QUIETLY IN BED THROUGHOUT THE NIGHT.
[2021-03-14 07:49] VITALS: BP 119/77; PULSE 79; TEMP 98.1; TEMP 98.4
--- NOTE | 2021-03-14 08:20 | NUR ---
Shift assessment complete. Pt resting in bed, denies SOA/chest pain/dizziness/palpitations. Does report some pain to left great toe, declines medication at this time. A&Ox4. Heart RRR. Lungs CTA. Right upper arm PICC w/o s/s complication. Denies needs at this time. Continuing to monitor.
[2021-03-14] MEDS ORDERED: TOPROL XL 50MG50 MG PO (11:41)
[2021-03-14] MEDS ORDERED: THIAMINE 1100 MG/TAB PO (11:42)
[2021-03-14] MEDS ORDERED: DUO-KAPS1 CAP PO (11:42)
[2021-03-14] MEDS ORDERED: FOLIC ACID 11 MG/TA1 PO (11:42)
[2021-03-14] MEDS ORDERED: MAXZIDE-25MG TA1 TAB PO (11:46)
[2021-03-14 11:55] VITALS: BP 116/86; PULSE 71; TEMP 98.2
--- NOTE | 2021-03-14 13:10 | NUR ---
Discharge instructions discussed w/pt and all questions answered. Rosenda w/AURELIA removed right upper arm PICC. Pt ambulated out w/all belongings, escorted by medical unit staff.
--- NOTE | 2021-03-14 13:45 | NUR ---
Mary, [facility] Director, reports that they received a referral on the patient. Mary reports that they have declined the patient, due to the patient being independent w/ mobility & taking a shower over the weekend. The patient discharged back home today, 03/14. No additional needs at this time.
== END 2021-03-14 13:29 | disposition home or self-care (01) | DRG 896 ==
LOC: COL.ER 10:13 → ICU 12:09 → MEDICAL 03-13 17:29
PROVIDERS: Emergency Medicine; Internal Medicine; Internal Medicine Critical Care Medicine; Internal Medicine Pulmonary Disease; Nurse Practitioner Family; Physician Assistant; ADMIT Emergency Medicine
PROC: 0BH17EZ Insertion of Endotracheal Airway into Trachea, Via Natural or Artificial Opening (ICD-10-PCS; principal; 2021-03-03)
PROC: 5A1955Z Respiratory Ventilation, Greater than 96 Consecutive Hours (ICD-10-PCS; 2021-03-03)
PROC: 02HV33Z Insertion of Infusion Device into Superior Vena Cava, Percutaneous Approach (ICD-10-PCS; 2021-03-04)
DX: F10.131 Alcohol abuse with withdrawal delirium (principal); U07.1 COVID-19; E87.1 Hypo-osmolality and hyponatremia; K86.1 Other chronic pancreatitis; I47.1 Supraventricular tachycardia; F10.151 Alcohol abuse with alcohol-induced psychotic disorder with hallucinations; E87.4 Mixed disorder of acid-base balance; E87.2 Acidosis; E87.6 Hypokalemia; E83.42 Hypomagnesemia; E86.1 Hypovolemia; I08.1 Rheumatic disorders of both mitral and tricuspid valves; D69.6 Thrombocytopenia, unspecified; E87.5 Hyperkalemia; K86.9 Disease of pancreas, unspecified; A49.02 Methicillin resistant Staphylococcus aureus infection, unspecified site; I10 Essential (primary) hypertension; R68.0 Hypothermia, not associated with low environmental temperature; F17.290 Nicotine dependence, other tobacco product, uncomplicated; Z78.1 Physical restraint status; Z88.0 Allergy status to penicillin; Z88.2 Allergy status to sulfonamides
CPT/HCPCS: 99223-AI; 99232-AI; 99239; A4314; C1751; C9113; J0153; J0360; J1650; J1720; J2060; J2250; J2405; J2704; J3010; J3370; J3475; J3480; J7030; J7040; J7050; J7120; Q9967

== ENCOUNTER → 2021-05-19 | Outpatient (CLI) | payer BC ==
[~2021-05-19] MED LIST changes: +MAXZIDE-25MG TA1 TAB PO; +TOPROL XL 50MG50 MG PO
== END ==
LOC: COL.RAD 10:19
DX: K86.89 Other specified diseases of pancreas (principal)
CPT/HCPCS: A9585

== ENCOUNTER → 2022-02-27 | Outpatient (CLI) | payer BC ==
[~2022-02-27] MED LIST changes: +ROXICODONE 55 MG/TAB PO; +ZOFRAN ODT4 MG PO
== END ==
LOC: COL.RAD 12:17
DX: N50.89 Other specified disorders of the male genital organs (principal); N43.3 Hydrocele, unspecified

== ENCOUNTER 2022-03-06 17:03 | Inpatient (IN) | payer BC ==
[~2022-03-06] VITALS: Ht 182.9 cm; Wt 109.7 kg
[~2022-03-06 17:03] MED LIST changes: -ROXICODONE 55 MG/TAB PO; -ZOFRAN ODT4 MG PO
[2022-03-06 17:53] LABS: BASO % 0.3 % (0.0-2.0); EOS # 0.1 K/mm3 (0.0-0.7); EOS % 1.3 % (0.0-4.0); GRAN # 6.6 K/mm3 (1.4-6.5); GRAN % 64.8 % (42.2-75.2); HEMATOCRIT 46.3 % (42.0-52.0); HEMOGLOBIN 15.8 g/dl (13.5-18.0); LYMPH # 2.5 K/mm3 (1.2-3.4); LYMPH % 24.6 % (20.0-51.0); MEAN CELL VOLUME 87 fl (80.0-100.0); MEAN CORPUSCULAR HEMOGLOBIN 30 pg (27-31); MEAN CORPUSCULAR HGB CONC 34 g/dl (33.0-37.0); MEAN PLATELET VOLUME 9.4 fl (7.4-10.4); MONO # 0.9 K/mm3 (0.1-0.6); MONO % 8.5 % (1.7-9.3); PLATELET COUNT 372 K/mm3 (130-400); RED BLOOD COUNT 5.31 M/mm3 (4.20-5.60); REDCELL DISTRIBUTION WIDTH-CV 11.9 % (11.5-14.5)
[2022-03-06 17:56] LABS: COLLECTION METHOD CLEAN CATCH
[2022-03-06 18:03] LABS: PH 6 (5-8); SQUAMOUS EPITHELIAL None Seen /hpf (0-10); URINE APPEARANCE Clear (CLEAR/HAZY); URINE BACTERIA Rare /hpf (NONE SEEN); URINE BILIRUBIN Negative (NEGATIVE); URINE BLOOD Negative (NEGATIVE); URINE COLOR Yellow (YELLOW); URINE GLUCOSE Negative (NEGATIVE); URINE KETONE 2+ (NEGATIVE); URINE LEUKOCYTE ESTERASE Negative (NEGATIVE); URINE NITRATE Negative (NEGATIVE); URINE PROTEIN(semi-quant) Negative (NEGATIVE); URINE RBC 0-2 /hpf (0-2); URINE UROBILINOGEN Negative (NEGATIVE)
[2022-03-06 18:14] LABS: ALBUMIN 4.2 gm/dL (3.5-5.0); BILIRUBIN,TOTAL 2.8 mg/dL (0.2-1.2); CALCIUM 9.3 mg/dL (8.4-10.2); CREATININE, serum 0.93 mg/dL (0.72-1.25); TOTAL PROTEIN 8.6 gm/dL (6.2-8.1)
[2022-03-06 21:30] VITALS: BP 153/93; PULSE 62; TEMP 98.4
--- NOTE | 2022-03-06 21:51 | NUR ---
Patient arrived to the unit by wheelchair, able to move independently. States pain of 9/10 in the upper right abdomen. PRN med provided. Receiving NS 150 ML\HR. Assessment intake completed.
[2022-03-06 23:06] VITALS: BP 139/87; PULSE 64; TEMP 98.2
[2022-03-07 03:27] VITALS: BP 118/89; PULSE 64; TEMP 98.2
--- NOTE | 2022-03-07 05:47 | NUR ---
Patient had an unrestful night. His pain allowed him to sleep just for some hours. Continue getting NS 150 ML/HR, Report will be given to day RN.
[2022-03-07 06:21] LABS: BASO % 0.5 % (0.0-2.0); EOS # 0.2 K/mm3 (0.0-0.7); EOS % 2.4 % (0.0-4.0); GRAN # 3.9 K/mm3 (1.4-6.5); GRAN % 52.3 % (42.2-75.2); HEMATOCRIT 43.6 % (42.0-52.0); LYMPH # 2.5 K/mm3 (1.2-3.4); LYMPH % 33.8 % (20.0-51.0); MEAN CELL VOLUME 86 fl (80.0-100.0); MEAN CORPUSCULAR HEMOGLOBIN 30 pg (27-31); MEAN CORPUSCULAR HGB CONC 34 g/dl (33.0-37.0); MEAN PLATELET VOLUME 9.9 fl (7.4-10.4); MONO # 0.8 K/mm3 (0.1-0.6); MONO % 10.9 % (1.7-9.3); PLATELET COUNT 323 K/mm3 (130-400); RED BLOOD COUNT 5.06 M/mm3 (4.20-5.60); REDCELL DISTRIBUTION WIDTH-CV 12.2 % (11.5-14.5)
[2022-03-07 06:33] LABS: ALBUMIN 3.8 gm/dL (3.5-5.0); BILIRUBIN,TOTAL 2.1 mg/dL (0.2-1.2); CALCIUM 8.8 mg/dL (8.4-10.2); CREATININE, serum 0.99 mg/dL (0.72-1.25); MAGNESIUM 2.1 mg/dL (1.6-2.6); POTASSIUM 4.8 mmol/L (3.5-4.5); TOTAL PROTEIN 7.5 gm/dL (6.2-8.1)
--- NOTE | 2022-03-07 06:45 | NUR ---
awake resting in bed, bedside shift report received from Usha Pelayo
--- NOTE | 2022-03-07 07:03 | NUR ---
Dr Mcgowan in to see patient
[2022-03-07 08:00] VITALS: BP 118/71; PULSE 58; TEMP 98.5
--- NOTE | 2022-03-07 08:15 | NUR ---
has had clear liquids and tolerated well, full assessment completed, see interventions for further info, specimen collected from nares and to the lab, denies needs at this time
--- NOTE | 2022-03-07 11:10 | NUR ---
c/o pain and medicated with morphine 2mg slow IV, Dr Cutler and care team in to see patient
--- NOTE | 2022-03-07 11:27 | NUR ---
adult day care worker met with patient to complete intake and discuss discharge plan. Patient lives at home with his life partner Neela ([phone]) and young child. Patient is independent with his ADL's and does not utilize any DME to assist with mobility. Patient has no home oxygen needs. PCP is Dr. Taylor and he utilizes [facility] for perscription needs with no cost difficulty. Patient does not have a DPOA-HC established. Education provided. Patient states that he and Neela are not legally but his parents are still living. He does not wish to create a DPOA-HC at this time. Patient is planning on returning home once medically ready. Discharge plan: Home
[2022-03-07 11:54] VITALS: BP 108/66; PULSE 56; TEMP 98.4
--- NOTE | 2022-03-07 12:15 | NUR ---
states morphine helped but still having some pain, medicated with roxicodone 5mg 2 tabs
--- NOTE | 2022-03-07 13:06 | NUR ---
appears to be dozing, in bed with lights off eyes closed, resp quiet and easy
--- NOTE | 2022-03-07 15:50 | NUR ---
sitting up on side of bed and ready to take a shower, telemetry off
[2022-03-07 16:00] VITALS: BP 131/61; PULSE 58; TEMP 98.3
--- NOTE | 2022-03-07 16:03 | NUR ---
telemetry discontinued,
--- NOTE | 2022-03-07 16:30 | NUR ---
c/o pain and medicated with roxicodone 5mg 2 tablets by RAFFAELE Ramos
--- NOTE | 2022-03-07 18:50 | NUR ---
bedside shift report given to Gita
[2022-03-07 19:24] VITALS: BP 104/58; PULSE 58; TEMP 98.6
--- NOTE | 2022-03-07 20:30 | NUR ---
Patient is resting in bed, alert and oriented x 4, VSS. Soft BP. States pain is 7/10. PRN provided. Tolerating general diet. Continue receiving NS 100 ML/HR. Assessment completed, medications provided, no other need at thist time. Call light within reach.
[2022-03-08 00:35] VITALS: BP 128/68; PULSE 68; TEMP 98.6
[2022-03-08 04:19] VITALS: BP 111/64; PULSE 61; TEMP 97.8
--- NOTE | 2022-03-08 05:59 | NUR ---
Patient has been unable to sleep. Melatonin added. Pain under control with actual regime. Continue receiving fluids 100ml/hr. Tolerating diet. Report will be given to day RN.
[2022-03-08 07:16] VITALS: BP 120/75; PULSE 57; TEMP 98
[2022-03-08 09:28] LABS: CALCIUM 8.7 mg/dL (8.4-10.2); CREATININE, serum 1.12 mg/dL (0.72-1.25); POTASSIUM 5.3 mmol/L (3.5-4.5)
[2022-03-08] MEDS ORDERED: ROXICODONE 55 MG/TAB PO (10:59)
[2022-03-08] MEDS ORDERED: ZOFRAN ODT4 MG PO (10:59)
[2022-03-08 11:42] VITALS: BP 142/93; PULSE 65
--- NOTE | 2022-03-08 12:00 | NUR ---
Reviewed discharge instructions with pt to include follow up appointments and prescriptions. Gave pt some pain medication and then informed him that he cannot drive for an hour. Pt ordered some lunch. INT removed from left AC. Informed pt to notify nursing when he is ready to leave.
== END 2022-03-08 12:41 | disposition home or self-care (01) | DRG 438 ==
LOC: COL.ER 17:03 → SURG 19:37
PROVIDERS: Nurse Practitioner Primary Care; Physician Assistant; Student in an Organized Health Care Education/Training Program; ADMIT Internal Medicine
DX: K85.90 Acute pancreatitis without necrosis or infection, unspecified (principal); K55.059 Acute (reversible) ischemia of intestine, part and extent unspecified; I81 Portal vein thrombosis; K86.3 Pseudocyst of pancreas; I10 Essential (primary) hypertension; K86.1 Other chronic pancreatitis; F10.10 Alcohol abuse, uncomplicated; K80.20 Calculus of gallbladder without cholecystitis without obstruction; E87.5 Hyperkalemia; Z88.0 Allergy status to penicillin; Z88.2 Allergy status to sulfonamides; Z23 Encounter for immunization
CPT/HCPCS: 99223-AI; 99233-AI; 99239; C9113; J1650; J2270; J7030; Q9967

== ENCOUNTER → 2022-03-17 | Outpatient (CLI) | payer BC ==
[~2022-03-17] MED LIST changes: +ROXICODONE 55 MG/TAB PO; +ZOFRAN ODT4 MG PO
[2022-03-17 10:12] LABS: BASO % 0.3 % (0.0-2.0); EOS # 0.1 K/mm3 (0.0-0.7); EOS % 1.2 % (0.0-4.0); GRAN # 7.5 K/mm3 (1.4-6.5); GRAN % 68.6 % (42.2-75.2); HEMATOCRIT 44.7 % (42.0-52.0); LYMPH # 2.5 K/mm3 (1.2-3.4); LYMPH % 22.9 % (20.0-51.0); MEAN CELL VOLUME 88 fl (80.0-100.0); MEAN CORPUSCULAR HEMOGLOBIN 29 pg (27-31); MEAN CORPUSCULAR HGB CONC 34 g/dl (33.0-37.0); MEAN PLATELET VOLUME 9.5 fl (7.4-10.4); MONO # 0.7 K/mm3 (0.1-0.6); MONO % 6.7 % (1.7-9.3); PLATELET COUNT 323 K/mm3 (130-400); RED BLOOD COUNT 5.11 M/mm3 (4.20-5.60); REDCELL DISTRIBUTION WIDTH-CV 12.2 % (11.5-14.5)
[2022-03-17 10:31] LABS: BILIRUBIN,TOTAL 1.7 mg/dL (0.2-1.2); CALCIUM 8.9 mg/dL (8.4-10.2); CHOLESTEROL RISK RATIO 4.4; CREATININE, serum 1.04 mg/dL (0.72-1.25); POTASSIUM 4.5 mmol/L (3.5-4.5); TOTAL PROTEIN 7.8 gm/dL (6.2-8.1)
[2022-03-17 10:51] LABS: THYROID STIMULATING HORMONE 1.886 uIU/mL (0.350-4.940)
== END ==
LOC: COL.LAB 09:46
DX: Z00.00 Encounter for general adult medical examination without abnormal findings (principal); Z13.220 Encounter for screening for lipoid disorders; Z13.29 Encounter for screening for other suspected endocrine disorder; K86.1 Other chronic pancreatitis

== ENCOUNTER 2024-04-09 17:33 | Observation (INO) | payer BC ==
[~2024-04-09] VITALS: Ht 182.9 cm; Wt 109.5 kg
[2024-04-09] MEDS ORDERED: NS 1,000 ML IV ONE ×2 (19:00→20:30)
[2024-04-09 19:14] LABS: BASO # 0.1 K/mm3 (0.0-0.2); BASO % 0.6 % (0.0-2.0); EOS # 0.1 K/mm3 (0.0-0.7); EOS % 1.2 % (0.0-4.0); GRAN # 5.2 K/mm3 (1.4-6.5); GRAN % 60.1 % (42.2-75.2); HEMATOCRIT 45.4 % (42.0-52.0); HEMOGLOBIN 15.4 g/dl (13.5-18.0); LYMPH # 2.6 K/mm3 (1.2-3.4); LYMPH % 30.3 % (20.0-51.0); MEAN CELL VOLUME 87 fl (80.0-100.0); MEAN CORPUSCULAR HEMOGLOBIN 30 pg (27-31); MEAN CORPUSCULAR HGB CONC 34 g/dl (33.0-37.0); MEAN PLATELET VOLUME 11.9 fl (7.4-10.4); MONO # 0.7 K/mm3 (0.1-0.6); MONO % 7.7 % (1.7-9.3); PLATELET COUNT 226 K/mm3 (130-400); RED BLOOD COUNT 5.21 M/mm3 (4.20-5.60); REDCELL DISTRIBUTION WIDTH-CV 12.4 % (11.5-14.5)
[2024-04-09 19:27] LABS: COLLECTION METHOD CLEAN CATCH
[2024-04-09 19:33] LABS: URINE APPEARANCE CLEAR (CLEAR/HAZY); URINE BLOOD NEGATIVE (NEGATIVE); URINE COLOR YELLOW (YELLOW); URINE GLUCOSE 3+ (NEGATIVE); URINE KETONE 1+ (NEGATIVE); URINE NITRATE NEGATIVE (NEGATIVE); URINE PROTEIN(semi-quant) NEGATIVE (NEGATIVE); URINE UROBILINOGEN 0.2 E.U/dL (0.2-1.0)
[2024-04-09 19:42] LABS: ACETONE,SERUM NEGATIVE
[2024-04-09 19:52] LABS: ALANINE AMINOTRANSFERASE 25 U/L (0-55); ALBUMIN 3.7 g/dL (3.5-5.0); ALKALINE PHOSPHATASE 118 U/L (40-150); ANION GAP 12 mmol/L (7-16); AST,SGOT 13 U/L (5-34); BILIRUBIN,TOTAL 1.2 mg/dL (0.2-1.2); CALCIUM 9.7 mg/dL (8.4-10.2); CHLORIDE 101 mEq/L (98-107); CREATININE, serum 1.34 mg/dL (0.72-1.25); POTASSIUM 4.1 mEq/L (3.5-4.5); SODIUM 130 mEq/L (136-145); TOTAL PROTEIN 7.2 g/dl (6.2-8.1)
[2024-04-09 19:56] LABS: ALCOHOL(ethanol),MEDICAL < 10 mg/dL (0-10); GLUCOSE 510 mg/dL (70-99)
[2024-04-09] MEDS ORDERED: Insulin Regular Human (NovoLIN R/HumuLIN R) IV ONE (20:00)
[2024-04-09 20:13] LABS: BLOOD UREA NITROGEN 18 mg/dL (9-21); THYROID STIMULATING HORMONE 3.003 uIU/mL (0.350-4.940)
[2024-04-09 20:14] LABS: TROPONIN-I < 0.010 ng/mL (0.00-0.033)
[2024-04-09] MEDS ORDERED: Metoprolol Tartrate 25 MG TAB PO ONE (20:15)
[2024-04-09] MEDS ORDERED: Acetaminophen 500 MG TAB PO ONE (20:15)
[2024-04-09] MEDS ORDERED: TOPROL XL 25MG25 MG PO (20:23)
[2024-04-09] MEDS ORDERED: NS 1,000 ML IV SCH (20:30)
[2024-04-09] MEDS ORDERED: DESYREL 50MG50 MG PO (20:44)
[2024-04-09] MEDS ORDERED: Acetaminophen 325 MG TAB PO PRN (20:45)
[2024-04-09] MEDS ORDERED: traZODone 50 MG TAB PO SCH (21:00)
[2024-04-09] MEDS ORDERED: Glucagon 1 MG VIAL IM PRN (21:15)
[2024-04-09] MEDS ORDERED: Dextrose (Glucose) 15 GM (4 x 3.75 GM) Chewable TABLET PACK PO PRN (21:15)
[2024-04-09] MEDS ORDERED: Dextrose 50% Water 25 GM/50 ML SYRINGE IV PRN (21:15)
[2024-04-09 21:36] LABS: PHOSPHOROUS 2.6 mg/dL (2.3-4.7)
[2024-04-09 22:15] VITALS: BP 107/72; PULSE 56; TEMP 97.7
[2024-04-09 22:26] VITALS: BP_SYST 107
--- NOTE | 2024-04-09 23:11 | NUR ---
Report received from ER at approximately 2145. Patient arrived to medical unit at approximately 2210. Alert and oriented, and able to make needs known. Denies having pain and discomfort. IV to left AC, started IV fluids per orders. Given food as requested. Went over diet. Voices no questions, needs, or concerns at this time. In bed with call light within reach.
[2024-04-10] VITALS (7 sets, daily range): BP systolic 106–112; BP diastolic 67–73; PULSE 61–70; TEMP 97.5–97.8
[2024-04-10] MEDS ORDERED: Insulin Lispro (HumaLOG) SQ SCH
[2024-04-10 00:11] LABS: CALCIUM 9.1 mg/dL (8.4-10.2); CREATININE, serum 1.16 mg/dL (0.72-1.25)
--- NOTE | 2024-04-10 06:09 | NUR ---
Patient has denied having pain and discomfort. Received insulin per orders during the night. Continues on IV fluids. Voices no questions, needs, or concerns at this time. In bed with call light within reach.
[2024-04-10 07:09] LABS: BASO % 0.5 % (0.0-2.0); EOS # 0.1 K/mm3 (0.0-0.7); EOS % 2.1 % (0.0-4.0); GRAN # 2.4 K/mm3 (1.4-6.5); GRAN % 41.5 % (42.2-75.2); HEMATOCRIT 40.3 % (42.0-52.0); HEMOGLOBIN 13.7 g/dl (13.5-18.0); LYMPH # 2.6 K/mm3 (1.2-3.4); LYMPH % 45.7 % (20.0-51.0); MEAN CELL VOLUME 88 fl (80.0-100.0); MEAN CORPUSCULAR HEMOGLOBIN 30 pg (27-31); MEAN CORPUSCULAR HGB CONC 34 g/dl (33.0-37.0); MEAN PLATELET VOLUME 11.3 fl (7.4-10.4); MONO # 0.6 K/mm3 (0.1-0.6); PLATELET COUNT 208 K/mm3 (130-400); RED BLOOD COUNT 4.57 M/mm3 (4.20-5.60); REDCELL DISTRIBUTION WIDTH-CV 12.4 % (11.5-14.5)
[2024-04-10 07:16] LABS: CALCIUM 8.2 mg/dL (8.4-10.2); CREATININE, serum 1.02 mg/dL (0.72-1.25); POTASSIUM 3.8 mEq/L (3.5-4.5)
--- NOTE | 2024-04-10 08:03 | NUR ---
Bedside report received from RAFFAELE Charles. Pt awake in bed with no complaints. Call light within reach.
[2024-04-10] MEDS ORDERED: Pantoprazole 40 MG in NS 10 ML IV SCH (09:00)
--- NOTE | 2024-04-10 10:24 | NUR ---
Pt awake in bed watching TV. Pt denies pain/discomfort. Pt A&O x4. Shift assessment completed. VSS. IV fluids infusing into LAC with no complications. Environmental Advisor Maye at bedside providing diabetic education. Pt has no request at this time. Call light within reach.
[2024-04-10] MEDS ORDERED: FREESTYLE PREC1 EAC5 MC (11:32)
[2024-04-10] MEDS ORDERED: GLUCOSE TEST ST1 DEV MC (11:32)
[2024-04-10] MEDS ORDERED: BD ALCOHOL1 SWA MC (11:32)
[2024-04-10] MEDS ORDERED: GLUCOPHAGE500 MG/TAB PO (11:32)
[2024-04-10] MEDS ORDERED: CONTROL SOLUTI1 EAC1 MC (11:32)
[2024-04-10] MEDS ORDERED: INSULIN PEN NE1 EAC1 MC (11:32)
[2024-04-10] MEDS ORDERED: LANCETS MC (11:32)
--- NOTE | 2024-04-10 12:31 | NUR ---
Discharge instructions provided to pt and pt verbalized understanding of discahrge paperwork. INT to LAC discontinued with tip intact. Pt tolerated well. Pt has no request upon leaving facility. Pt left facility by personal vechile.
== END 2024-04-10 12:32 | disposition home or self-care (01) ==
LOC: COL.ER 17:33 → MEDICAL 21:32
PROVIDERS: Nurse Practitioner; Nurse Practitioner Family; ADMIT Internal Medicine
DX: E11.9 Type 2 diabetes mellitus without complications (principal); N17.9 Acute kidney failure, unspecified; I10 Essential (primary) hypertension; Z87.891 Personal history of nicotine dependence; Z79.899 Other long term (current) drug therapy
CPT/HCPCS: C9113; G0378; J1650; J1815; J7030